=== PATIENT | male | born 2000 | race Asian ===

== ENCOUNTER → 2022-02-23 | Outpatient (CLI) | payer OTHER | LOC: WOUNDCARE 13:02 | PROVIDERS: ATTEND Family Medicine | DX: T23.261A Burn of second degree of back of right hand, initial encounter (principal); T31.0 Burns involving less than 10% of body surface; A49.9 Bacterial infection, unspecified | CPT/HCPCS: 87070; 87205; G0463; 99203 ==

== ENCOUNTER → 2022-03-02 | Outpatient (CLI) | payer OTHER | LOC: WOUNDCARE 12:42 | PROVIDERS: ATTEND Family Medicine | DX: T23.361A Burn of third degree of back of right hand, initial encounter (principal); T31.0 Burns involving less than 10% of body surface; I96 Gangrene, not elsewhere classified | CPT/HCPCS: 16020; G0463 ==

== ENCOUNTER → 2022-03-09 | Outpatient (CLI) | payer OTHER | LOC: WOUNDCARE 12:52 | PROVIDERS: ATTEND Family Medicine | DX: T31.0 Burns involving less than 10% of body surface (principal); T23.361A Burn of third degree of back of right hand, initial encounter; I96 Gangrene, not elsewhere classified | CPT/HCPCS: 16020; A6212; G0463 ==

== ENCOUNTER 2022-12-18 11:37 | Emergency (ER) | payer SELFPAY ==
[~2022-12-18] VITALS: Ht 175 cm; Wt 55.0 kg
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
--- NOTE | 2022-12-18 12:12 | Diagnostic Imaging Report ---
EXAMINATION: Right shoulder radiographs, 3 views. COMPARISON: None. HISTORY: 22-year-old male, right shoulder pain. Injury. FINDINGS: The acromioclavicular and glenohumeral joints are normally aligned. There is no identified acute fracture. IMPRESSION: 1. Unremarkable radiographs of the right shoulder. Dictated by: Dictated on workstation # [id number]
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
[2022-12-18 12:59] VITALS: BP 112/79
== END 2022-12-18 12:59 | disposition home or self-care (01) ==
LOC: EDUNIT# 11:37 → ER 11:40
DX: S00.83XA Contusion of other part of head, initial encounter (principal); S40.011A Contusion of right shoulder, initial encounter; R68.84 Jaw pain; F17.210 Nicotine dependence, cigarettes, uncomplicated; Y04.8XXA Assault by other bodily force, initial encounter
CPT/HCPCS: 70450; 70486; 72125; 73030